=== PATIENT | male | born 1940 | race Caucasian/White ===

== ENCOUNTER → 2017-02-14 | Outpatient (CLI) | payer OTHER ==
[~2017-02-14] MED LIST: ACETAMINOPHEN PO; ALB/IPRATROPIUM/1 E1; ALB/IPRATROPIUM/1 E1 INH; AMARYL PO; ASPIRIN PO; ASPIRIN81 M2 PO; ASPIRIN81 MG PO; ASPIRINEC PO; ATIVAN0.5 M1 PO; AVANDAMET 4 MG/1 TAB; B-121000 MC1 SL; BENZONATATE PO; CARVEDILOL6.25 MG PO; CERTAGEN PO; CINNAMON PO; CLINDAMYCIN HC300 MG PO; CLOPIDOGREL75 MG PO; COREG6.25 MG PO; COUMADIN2.5 MG PO; COUMADIN5 MG PO; DIOVAN HCT 160-1 TAB PO; DIOVAN80 M1 PO; FISH OIL 1,0001 CAP PO; FISH OIL 1,4001 EACH PO; FISH OIL SOFTGE1 CA1 PO; FLOMAX0.4 M1 PO; FUROSEMIDE40 MG PO; GLUCOPHAGE XR500 MG PO; GLUCOPHAGE500 M1; GLUCOPHAGE500 M1 PO; GLUCOPHAGE500 MG PO; GLUCOSAMINE & C1 CAP PO; HYZAAR 100-25 T1 TAB; IMDUR-ER30 M2; LANTUS100 U/M1 SUBQ; LANTUS100 U/ML; LANTUS100 U/ML SQ; LANTUS100 U/ML SUBQ; LASIX20 MG PO; LEVAQUIN P; LIPITOR; LIPITOR PO; LIPITOR20 MG PO; LISINOPRIL-HCTZ1 T14 PO; LOPRESSOR; LORAZEPAM1 MG PO; LORTAB; METFORMIN HCL500 M2 PO; MONTELUKAST SOD10 MG PO; MULTI VITAMIN1 EACH PO; MULTI-VITAMIN1 TAB; MULTIPLE VITAMI1 T11 PO; NIACIN; NITROGLYGERIN0.4 MG SL; OMEPRAZOLE20 M2 PO; PATIENT'S PHARMACY; PLAVIX; PLAVIX PO; PRILOSEC; PRILOSEC PO; PRILOSEC20 M1 PO; SIMVASTATIN40 MG PO; TOPROL XL; VALSARTAN-HCTZ1 EAC2 PO; VIT B-12 PO; VIT E; VIT E PO; ZESTORETIC 20/11 TAB PO; ZOVIRAX400 MG PO; [UNRECOGNIZED DRUG - OTHER] PO
== END | disposition home or self-care (01) ==
LOC: CRAD 09:17
DX: R13.10 Dysphagia, unspecified (principal)
CPT/HCPCS: 74230; 92611; G8996-GN; G8997-GN; G8998-GN

== ENCOUNTER → 2017-04-02 | Outpatient (CLI) | payer OTHER ==
--- NOTE | ~2017-04-02 | CT2 ---
[facility] A Service of [facility] & [facility] RADIOLOGY TEXT RESULTS PATIENT: CESAR STEPHENSON LOCATION: [facility] : 40 UNIT #: [id number] AGE: [address]: SANDOR GALAVIZ APRN SEX: M ORDER DR: [id number] [facility] [address] [place], [place] [address] [id number] O MR#: [id number] [facility] #: [id number] NAME: CESAR STEPHENSON : 1940 SEX: M STUDY DATE/TIME: 04/02/2017 13:27 UNIT: [facility] ROOM: STUDY DESCRIPTION: CT Abd and Pelv W Cont Attending Physician: Sandor Galaviz Aprn Referring Physician: Sandor Galaviz Aprn Ordering Physician: Sandor Galaviz Aprn Primary Care Physician: Sanya Mosqueda M.D. MEDICAL IMAGING REPORT This report is preliminary unless electronic signature is present EXAM CT of the abdomen and pelvis with contrast INDICATIONS Abdominal pain for 6 months, this is evidently bilateral pain. TECHNIQUE Axial CT images were obtained from the dome of the diaphragm through the symphysis pubis following the administration of intravenous contrast material. Patient also received oral contrast as well. This CT exam was performed with one or more of the following radiation dose reduction techniques: Automatic exposure control, adjustment of mA and/or kV according to patient size, and iterative reconstruction. FINDINGS Background emphysematous changes are noted. Patient does have some stable scarring within the right middle lobe; similar findings were present in May 2008. Extensive atherosclerotic involvement of the cavernous carotid arteries are noted. There is no pleural or pericardial effusion. Stomach and proximal small bowel appear normal. Adrenal glands are mildly bulky in appearance but are probably not significantly changed when compared to January 2016. Calcified granulomata are seen within the spleen. Pancreas appears unremarkable. Patient has nonobstructing stones seen within both kidneys. There is a 5-mm stone seen within the inferior pole of the right kidney and 2 subcentimeter stones are seen within the superior pole of the left kidney. Left renal cyst is seen arising from the superior pole of the left kidney, no hydronephrosis is seen. Tiny enhancing focus is seen within the right hepatic lobe; this is indeterminate but is favored to be benign. No free fluid or adenopathy is seen within the abdomen. Extensive atherosclerotic involvement of the abdominal aorta continues into the iliac vessels. There is probable calcified intimal flap seen within the infrarenal abdominal aorta. [facility] A Service of [facility] RADIOLOGY TEXT RESULTS PATIENT: CESAR STEPHENSON LOCATION: [facility] : 40 UNIT #: [id number] AGE: [address]: SANDOR GALAVIZ ADJUSTMENT SUPERVISOR SEX: M ORDER DR: Dystrophic calcifications are seen within the prostate gland, which does appear enlarged. Urinary bladder appears normal. There are postsurgical changes involving the ascending colon without evidence of obstruction. No free fluid or adenopathy is seen within the pelvis. This patient does have coarsening of the trabeculation of the left iliac bone, which could reflect Paget's disease. It does appear stable when compared to January 2016 and there is also involvement of the patient's left acetabulum. IMPRESSION 1. No acute intraabdominal or intrapelvic process is seen. Patient does have nonobstructing stones seen within both kidneys; these were present on the prior exam from January 2016. 2. Tiny enhancing focus seen within the right hepatic lobe is too small to accurately characterize; I suspect it represents a benign lesion such as hemangioma. 3. Advanced atherosclerotic involvement of the coronary arteries as well as the abdominal aorta with extension into the iliac vessels. 4. Prostatic enlargement. 5. 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 6. Left renal cyst. Please see the body of the report for any other additional incidental findings. Dictated by... Diane Schafer M.D. THIS IS AN ELECTRONICALLY VERIFIED REPORT Diane Schafer M.D. at 04/05/2017 8:04 AM AFF/psc TD: 04/03/2017 23:40 JOB #: [id number] MEDICAL IMAGING REPORT Page 1 of 1 COPY
[2017-04-02 17:40] LABS: POC - CREATININE 1.19 mg/dL (0.64-1.27); POC - GFR >60.0 mL/min (>60)
== END | disposition home or self-care (01) ==
LOC: CCAT 11:43
PROVIDERS: Nurse Practitioner
DX: R10.31 Right lower quadrant pain (principal); R10.32 Left lower quadrant pain; N20.0 Calculus of kidney; N40.0 Benign prostatic hyperplasia without lower urinary tract symptoms
CPT/HCPCS: 74177; 82565; Q9967

== ENCOUNTER 2017-05-02 23:53 | Emergency (ER) | payer OTHER ==
[~2017-05-02] VITALS: Ht 170.2 cm; Wt 106.6 kg
--- NOTE | ~2017-05-02 | CR72 ---
[facility] A Service of [facility] RADIOLOGY TEXT RESULTS PATIENT: CESAR STEPHENSON LOCATION: [facility] : 40 UNIT #: [id number] AGE: [address]: Naman Hernandez MD SEX: M ORDER DR: [id number] [facility] [address] [place], [place] [address] [id number] E MR#: [id number] Acc #: [id number] NAME: CESAR STEPHENSON : 1940 SEX: M STUDY DATE/TIME: 05/03/2017 0:58 UNIT: [facility] ROOM: STUDY DESCRIPTION: CR Chest Single View Portable Attending Physician: Naman Hernandez M.D. Ordering Physician: Naman Hernandez M.D. Primary Care Physician: Sanya Mosqueda M.D. MEDICAL IMAGING REPORT This report is preliminary unless electronic signature is present EXAM AP portable chest DATE: 05/03/2017 HISTORY Shortness of breath, cough and congestion for 3 days. History of atrial fibrillation, hypertension. COMPARISON PA lateral chest radiograph 11/23/2015. PET/CT 02/02/2016. FINDINGS Chronic-appearing scarring in the right midlung adjacent to the fissure margin, thought to be similar to the PET/CT from 02/02/2016. Additionally, there is chronic-appearing pleural thickening or reaction of the right costophrenic angle. No definite acute airspace disease identified. There is stable [id number] cardiac enlargement. No pleural effusion or pneumothorax is identified. Dictated by... Stephany Vargas M.D. THIS IS AN ELECTRONICALLY VERIFIED REPORT Stephany Vargas M.D. at 05/03/2017 9:48 PM Emilee/reji TD: 05/03/2017 02:32 JOB #: [id number] MEDICAL IMAGING REPORT [facility] A Service [facility] RADIOLOGY TEXT RESULTS PATIENT: CESAR STEPHENSON LOCATION: [facility] : 40 UNIT #: [id number] AGE: [address]: Naman Hernandez MD SEX: M ORDER DR: Page 1 of 1 COPY
--- NOTE | ~2017-05-02 | EKG ---
PATIENT: CESAR STEPHENSON UNIT #: [id number] Ventricular Rate: 86 BPM Atrial Rate: 468 BPM QRS Duration: 82 ms Q-T Interval: 366 ms QTC Calculation(Bezet): 437 ms Calculated R Carson: 62 degrees Calculated T Carson: 69 degrees Diagnosis Line: Atrial fibrillation Diagnosis Line: Abnormal ECG Diagnosis Line: When compared with ECG of 09-JUN-2016 11:45, Diagnosis Line: No significant change was found Diagnosis Line: Confirmed by KIM FALCON MD ([id number]) on 05/05/2017 Diagnosis Line: 8:09:16 AM INTERPRETING MD: EZEKIEL BORJA
[2017-05-03 00:45] LABS: BASOPHIL% 0.4 % (0-2.5); EOSINOPHIL# 0.2 X10e3 (0-0.7); EOSINOPHIL% 3.3 % (0.0-7.0); HEMATOCRIT 40.4 % (38.0-50.0); HEMOGLOBIN 13.3 gm/dL (13.0-16.0); LYMPHOCYTE# 0.5 X10e3 (1.0-3.5); LYMPHOCYTE% 7.9 % (17.0-45.0); MEAN CELL VOLUME 84.1 FL (83-96); MEAN CORPUSCULAR HEMOGLOBIN 27.8 PG (28-34); MEAN PLATELET VOLUME 7.6 FL (6.5-11.5); MONOCYTE# 0.5 X10e3 (0-1.0); MONOCYTE% 8.1 % (3.0-12.0); NEUTROPHIL# 5.4 X10e3 (1.5-7.1); NEUTROPHIL% 80.3 % (40-75); PLATELET COUNT 219 X10e3 (140-420); RED CELL DISTRIBUTION WIDTH 17.1 % (11.0-15.5); WHITE BLOOD COUNT 6.7 X10e3 (4.0-10.5)
[2017-05-03 00:46] LABS: DIFF IND NO
[2017-05-03 01:11] LABS: BUN/CREATININE RATIO 17.27; CALCIUM SERUM 9.1 mg/dL (8.4-10.2); CREATININE SERUM 1.1 mg/dL (0.6-1.4); GLOM FILT RATE Estimated 64.9 mL/min (>60); POTASSIUM 4.5 mmol/L (3.5-5.1)
== END 2017-05-03 03:48 | disposition home or self-care (01) ==
LOC: CED 23:53
PROVIDERS: Emergency Medicine
DX: J20.9 Acute bronchitis, unspecified (principal); E11.9 Type 2 diabetes mellitus without complications; I10 Essential (primary) hypertension; Z90.49 Acquired absence of other specified parts of digestive tract
CPT/HCPCS: 36415; 71010; 80048; 85025; 93005; 94640; 96374; 99285; J2930